=== PATIENT | male | born 1980 | race Asian ===

== ENCOUNTER 2017-02-01 01:40 | Inpatient (IN) | payer OTHER ==
[~2017-02-01] VITALS: Ht 180.3 cm; Wt 86.2 kg
[2017-02-01 01:44] VITALS: BP 135/83
--- NOTE | 2017-02-01 01:57 | NUR ---
PATIENT TO ER BED 7
--- NOTE | 2017-02-01 02:10 | NUR ---
PATIENT PRESENTS TO ED WITH abd pain, no BM since Tuesday . PT DENIES N/V/D; SKIN IS PINK/WARM/DRY; AAOX4 WITH EVEN AND STEADY GAIT; LUNGS CLEAR BL; HR EVEN AND REGULAR; PT DENIES ANY FEVER, CP, SOB, OR COUGH AT THIS TIME; PATIENT STATES PAIN OF 10/10 AT THIS TIME; VSS; PATIENT POSITIONED FOR COMFORT; HOB ELEVATED; BEDRAILS UP X2; BED DOWN. ER MD MADE AWARE OF PT STATUS.
--- NOTE | 2017-02-01 02:10 | NUR ---
xray at bedside
[2017-02-01] MEDS ORDERED: NACL 0.9% 1,000 ML IV ONE (02:31)
[2017-02-01] MEDS ORDERED: ONDANSETRON 4 MG/2 ML VIAL IVP ONE ×3 (02:35→04:30)
[2017-02-01] MEDS ORDERED: MORPHINE SULFATE 4 MG/ML SYR IVP ONE ×2 (02:35→04:30)
[2017-02-01] MEDS ORDERED: DICYCLOMINE 20 MG/2 ML VIAL IM ONE (02:35)
--- NOTE | 2017-02-01 03:07 | NUR ---
PT VOMMITTED. ER MD MADE AWARE. WILL FOLLOW UP WITH ORDERS
--- NOTE | 2017-02-01 03:27 | NUR ---
PT TAKEN OFF UNIT TO CT VIA [facility] CROSSE.
--- NOTE | 2017-02-01 03:40 | NUR ---
PATIENT BACK ON UNIT FROM CT.
[2017-02-01] MEDS ORDERED: NACL 0.9% 2,000 ML IV ONE (04:30)
[2017-02-01] MEDS ORDERED: NACL 0.9% 1,000 ML IV SCH (04:38)
[2017-02-01] MEDS ORDERED: LORazepam 2 MG/ML VIAL IVP PRN ×2 (04:40→06:15)
[2017-02-01] MEDS ORDERED: MORPHINE SULFATE 4 MG/ML SYR IVP PRN ×2 (04:40→06:15)
[2017-02-01] MEDS ORDERED: ACETAMINOPHEN 325 MG TAB PO PRN ×2 (04:40→06:15)
[2017-02-01] MEDS ORDERED: ONDANSETRON 4 MG/2 ML VIAL IVP PRN ×2 (04:40→06:15)
--- NOTE | 2017-02-01 05:10 | NUR ---
NG-TUBE INSERTED BY ER MD DR MENARD. PT VOMMITTED. NG-TUBE CONNECTED TO SUCTION CANNISTER. WILL CONTINUE TO MONITOR.
--- NOTE | 2017-02-01 05:30 | NUR ---
Patient will be admitted to care of DR MAYA. Admited to MED-SURGE. Will go to room 120B. Belongings list completed. Report to JOES COOPER. AUDI HERNANDEZ PATIENT TO BE TAKEN TO MED-SURGE UNIT AFTER 0600. Addendum: 02/01/17 at 0614 by MNURGA 120A.
--- NOTE | 2017-02-01 05:35 | NUR ---
PT HAVING X-RAY DONE AT BEDSIDE.
[2017-02-01] MEDS: NACL 0.9% 1,000 ML IV SCH ×2 (06:15→20:39)
--- NOTE | 2017-02-01 07:46 | NUR ---
RECEIVED 36Y.O.M FROM ER.PLACED PN BED.ORIENTED TO ROOM.CALL SYSTEM EXPLAINED AND IN REACH.CONNECTED NGT TO SUCTION.PT IS AWAKE,ALERT AND ORIENTED.RESP.UNLABORED.IV LINE INTACT IN LT HAND W/O REDNESS OR EDEMA.MRSA NARES SENT.VS STABLE.REPORT GIVEN TO RICHIE GARCIA.
--- NOTE | 2017-02-01 07:55 | NUR ---
RECEIVED REPORT FROM JOSE QUIROZ. PT RESTING IN BED. NO S/S OF ACUTE DISTRESS. PT DENIES PAIN. IV SITE PATENT AND INTACT. NG-TUBE TO RIGHT NARE NOTED. SUCTION ON LOW INTERMITTENT PER MD. CALL LIGHT WITHIN REACH. SAFETY MEASURES ENSURED. WILL CONTINUE TO MONITOR.
[2017-02-01 08:00] VITALS: BP 119/73
--- NOTE | 2017-02-01 08:00 | NUR ---
PATIENT HAS BEEN SCREENED AND CATEGORIZED MODERATE NUTRITION RISK. PATIENT WILL BE SEEN WITHIN 3-5 DAYS OF ADMISSION. 02/03/17-02/05/[address]
[2017-02-01] MEDS ORDERED: ENOXAPARIN 40 MG/0.4 ML SYR SUBQ SCH (09:00)
[2017-02-01] MEDS: ENOXAPARIN 40 MG/0.4 ML SYR SUBQ SCH (09:30)
--- NOTE | 2017-02-01 10:38 | NUR ---
PT RESTING IN BED. NO S/S OF ACUTE DISTRESS. PT STATES PAIN IS REDUCED TO 2/10. CALL LIGHT WITHIN REACH. SAFETY MEASURES ENSURED. WILL CONTINUE TO MONITOR.
--- NOTE | 2017-02-01 11:58 | NUR ---
PT RESTING IN BED. NO S/S OF ACUTE DISTRESS. PT DENIES PAIN AT THIS TIME. PT HAD A BOWEL MOVEMENT. DR. MAYA MADE AWARE. CALL LIGHT WITHIN REACH. SAFETY MEASURES ENSURED. WILL CONTINUE TO MONITOR.
[2017-02-01] MEDS: metroNIDAZOLE 500 MG/NS PREMIX 100 ML IV SCH ×2 (12:50→20:39)
--- NOTE | 2017-02-01 14:11 | NUR ---
FAXED INITIAL REVIEW TO [facility] [phone] PHONE ELLIE [phone]
--- NOTE | 2017-02-01 14:48 | NUR ---
PT RESTING IN BED. NO S/S OF ACUTE DISTRESS. PT DENIES PAIN. IV SITE PATENT AN INTACT. CALL LIGHT WITHIN REACH. SAFETY MEASURES ENSURED. WILL CONTINUE TO MONITOR.
[2017-02-01] MEDS ORDERED: LEVOFLOXACIN 500 MG/D5W PREMIX 100 ML IV SCH (15:00)
[2017-02-01 16:00] VITALS: BP 119/73
--- NOTE | 2017-02-01 16:28 | NUR ---
PT RESTING IN BED. NO S/S OF ACUTE DISTRESS. PT DENIES PAIN. NG-TUBE IN PLACE. IV SITE PATENT AND INTACT. CALL LIGHT WITHIN REACH. SAFETY MEASURES ENSURED. WILL CONTINUE TO MONITOR.
--- NOTE | 2017-02-01 18:47 | NUR ---
PT'S NG-TUBE DISCONTINUED. NO S/S OF ACUTE DISTRESS. TIP INTACT. PT DENIES PAIN. WILL CONTINUE TO MONITOR.
--- NOTE | 2017-02-01 19:30 | NUR ---
RECEIVED REPORT FROM EAMON GARCIA AT BEDSIDE. PT IS ALERT AWAKE ORIENTED X4. INITIAL ASSESSMENT DONE. NO S/S OF RESPIRATORY DISTRESS OR SOB NOTED. NO C/O PAIN OR ANY DISCOMFORT AT THIS TIME. PLAN OF CARE REVIEWED TO PT AND FAMILY AT BEDSIDE AND VERBALIZED UNDERSTANDING. CALL LIGHT WITHIN REACH. WILL CONTINUE TO MONITOR.
--- NOTE | 2017-02-01 19:30 | NUR ---
ENDORSED PLAN OF CARE TO NIGHT RN. PT REMAINS IN STABLE CONDITION.
[2017-02-01] MEDS: DOCUSATE SODIUM 100 MG GELCAP PO SCH (20:39)
[2017-02-01] MEDS ORDERED: SENNA 8.6 MG TAB PO SCH (21:00)
[2017-02-02] VITALS: BP 138/87
--- NOTE | 2017-02-02 00:10 | NUR ---
PT IS SLEEPING RIGHT NOW BUT EASILY AROUSABLE. NO S/S OF ANY DISCOMFORT AT THIS TIME. ALL NEEDS ARE ATTENDED. CALL LIGHT WITHIN REACH. WILL CONTINUE TO MONITOR.
[2017-02-02] MEDS: metroNIDAZOLE 500 MG/NS PREMIX 100 ML IV SCH (04:46)
--- NOTE | 2017-02-02 05:45 | NUR ---
AM CARE RENDERED. BED LINEN CHANGED. INSTRUCTED PT TO REPOSITION. KEPT CLEAN AND DRY. CALL LIGHT WITHIN REACH. WILL CONTINUE TO MONITOR.
--- NOTE | 2017-02-02 07:17 | NUR ---
PT HAS NO S/S OF ANY DISCOMFORT. PLAN OF CARE ENDORSE TO AM SHIFT NURSE FOR CONTINUITY OF CARE.
--- NOTE | 2017-02-02 07:20 | NUR ---
RECEIVED REPORT FROM IVY RN. AAOX4. NO S/S OF ACUTE DISTRESS. PT DENIES PAIN. IV SITE PATENT AND INTACT. CALL LIGHT WITHIN REACH. SAFETY MEASURES ENSURED. WILL CONTINUE TO MONITOR.
[2017-02-02 07:56] VITALS: BP 126/70
[2017-02-02] MEDS: DOCUSATE SODIUM 100 MG GELCAP PO SCH (08:54)
[2017-02-02] MEDS: NACL 0.9% 1,000 ML IV SCH (08:54)
[2017-02-02] MEDS: ENOXAPARIN 40 MG/0.4 ML SYR SUBQ SCH (08:59)
--- NOTE | 2017-02-02 09:38 | NUR ---
PT RESTING IN BED. NO S/S OF ACUTE DISTRESS. PT HAD BOWEL MOVEMENT. PT DENIES AND PAIN, NAUSEA OR VOMITING. IV SITE PATENT AND INTACT. CALL LIGHT WITHIN REACH. SAFETY MEASURES ENSURED. WILL CONTINUE TO MONITOR.
[2017-02-02 10:56] VITALS: BP 113/66
[2017-02-02] MEDS ORDERED: FLAGYL250 MG PO (11:27)
[2017-02-02] MEDS ORDERED: CIPRO250 MG PO (11:27)
[2017-02-02] MEDS ORDERED: MAGNESIUM OXIDE 400 MG TAB PO SCH (11:30)
--- NOTE | 2017-02-02 11:35 | NUR ---
DR. MAYA IN TO SEE PT. NO S/S OF ACUTE DISTRESS. PT DENIES PAIN. CALL LIGHT WITHIN REACH. SAFETY MEASURES ENSURED. WILL CONTINUE TO MONITOR.
--- NOTE | 2017-02-02 12:46 | NUR ---
PT CLEARED FOR DISCHARGE. DISCHARGE INSTRUCTIONS PROVIDED. PT VERBALIZED UNDERSTANDING. IV TAKEN OUT. TIP INTACT. PT REMAINS IN STABLE CONDITION.
--- NOTE | 2017-02-02 13:00 | NUR ---
PT TAKEN OFF UNI. NO S/S OF ACUTE DISTRESS. PT DENIES PAIN. PT REMAINS IN STABLE CONDITION.
--- NOTE | 2017-02-02 13:05 | NUR ---
CM NOTE FAXED CONCURRENT REVIEW TO [facility] FAX# [phone] PH# ELLIE [phone]
== END 2017-02-02 13:02 | disposition home or self-care (01) | DRG 247 ==
LOC: MED 01:40 → MTU 04:45 → MED 06:02 → MTU 11:50
PROVIDERS: ADMIT Internal Medicine Pulmonary Disease; ATTEND Internal Medicine Pulmonary Disease
DX: K56.7 Ileus, unspecified (principal); N17.9 Acute kidney failure, unspecified; K52.9 Noninfective gastroenteritis and colitis, unspecified; D72.829 Elevated white blood cell count, unspecified; K59.00 Constipation, unspecified; E86.0 Dehydration; F17.210 Nicotine dependence, cigarettes, uncomplicated; F12.90 Cannabis use, unspecified, uncomplicated; R79.89 Other specified abnormal findings of blood chemistry; Z87.828 Personal history of other (healed) physical injury and trauma